=== PATIENT | female | born 1945 | race Caucasian/White ===

== ENCOUNTER 2017-09-03 11:26 | Emergency (ER) | payer BC, OTHER ==
[2017-09-03 12:04] VITALS: BP 136/92; PULSE 85; RESP 20; TEMP 97.7; O2SAT 97
--- NOTE | 2017-09-03 13:14 | EDPHY ---
H & P Time Seen by Provider: 09/03/17 12:58 HPI/ROS: CHIEF COMPLAINT: "I am here to rule out the flu" HISTORY OF PRESENT ILLNESS: The patient is a 72-year-old female who presents emergency department concerned that she contracted the flu. The patient has been in [place] for the past few months. She returned 2 days ago. 2 days ago upon her return, she developed a headache and body aches. She also has mild chills. She felt initially that this was just leg but now it is persisted. She has no cough or shortness of breath. No chest pain. No abdominal pain. No nausea, vomiting or diarrhea. No rash. No neck stiffness. No photophobia. The patient states that she has been having an issue with her tooth. She saw her dentist yesterday. She was told that she needed a root canal. She was started on amoxicillin. REVIEW OF SYSTEMS: My complete review of systems is negative except as mentioned in the HPI. Past Medical/Surgical History: Includes dental infection Past surgical history: Noncontributory Social history: The patient was living in [facility]. She does not smoke. She denies drugs. Smoking Status: Never smoked Physical Exam: Vitals noted GENERAL: Well-appearing, in no acute distress, alert. HEENT: Eyes normal to inspection, normal pharynx, no signs of dehydration. NECK: No thyromegaly, no lymphadenopathy, supple. No meningismus RESPIRATORY: Clear to auscultation bilaterally, no rales, rhonchi or wheezing. CVS: Regular rate and rhythm, no rubs, murmurs, or gallops. ABDOMEN: Soft, nontender, nondistended, no organomegaly. BACK: Normal to inspection, no CVA tenderness. SKIN: Normal color, no rash, warm, dry. No pallor. EXTREMITIES: No pedal edema, no calf tenderness, no Homans sign or cords, no joint swelling. NEURO/PSYCH: Alert and oriented x3, normal mood and affect, normal motor sensory exam. No obvious cranial nerve deficit. Constitutional: Initial Vital Signs Temperature (C) 36.5 C 09/03/17 12:01 Heart Rate 85 09/03/17 12:01 Respiratory Rate 20 09/03/17 12:01 Blood Pressure 136/92 H 09/03/17 12:01 O2 Sat (%) 97 09/03/17 12:01 O2 Delivery Mode Room Air Allergies/Adverse Reactions: No Known Allergies Allergy (Unverified 09/03/17 12:00) Home Medications: Medication Instructions Recorded AMOXICILLIN 09/03/17 Albuterol Hfa Anes Only 09/03/17 Ibuprofen 09/03/17 Oseltamivir Phosphate [Tamiflu] 75 mg PO BID 10 Days capsule 09/03/17 Qvar 09/03/17 Tylenol 325mg (*) 09/03/17 Medical Decision Making ED Course/Re-evaluation: In the emergency department I discussed possible etiologies with the patient. I answered all her questions. Patient does want a flu swab sent. This was ordered. The patient informed the nurse that she did not want wait for her flu swab results. I gave the patient warnings prior to leaving. She will return with worsening symptoms. Differential Diagnosis: My differential includes but is not limited to influenza, viral illness, bacteremia, sepsis, pneumonia - Data Points Laboratory Results: 09/03/17 12:50 Nasal Influenza A PCR Pending Nasal Influenza B PCR Pending Departure - Departure Disposition: Home, Routine, Self-Care Clinical Impression: Body aches Condition: Good Instructions: Viral Syndrome (ED) Additional Instructions: Return with increasing symptoms or any other concerns. Referrals: Nikhil Burks [Doctor of Osteopathy] - 2-3 days, if not improved Prescriptions: Oseltamivir Phosphate [Tamiflu] 75 mg PO BID 10 Days capsule
== END 2017-09-03 13:22 | disposition home or self-care (01) ==
DX: R52 Pain, unspecified (principal)